=== PATIENT | male | born 1990 | race Caucasian/White ===

== ENCOUNTER 2016-05-25 10:37 | Outpatient (CLI) ==
[2015-11-15 23:54] VITALS: BMI 32.1
== END 2016-05-25 10:38 ==
LOC: AMBL 10:37
PROVIDERS: ATTEND Emergency Medicine
DX: S50.812A Abrasion of left forearm, initial encounter (principal); W45.8XXA Other foreign body or object entering through skin, initial encounter; Y92.149 Unspecified place in prison as the place of occurrence of the external cause

== ENCOUNTER 2016-07-07 11:50 | Emergency (ER) ==
[2016-07-07 12:00] VITALS: BP 139/83; TEMP 98.1; BMI 27.8
--- NOTE | 2016-07-07 13:49 | CT ---
EXAM: CT right ankle without contrast HISTORY: New injury to secondary healing fracture site COMPARISON: Radiograph 09/05/2009 TECHNIQUE: Multiple axial images of the right ankle were obtained without intravenous contrast. Im ages were reformatted in sagittal and coronal planes. FINDINGS: Bone mineralization is normal. There is healed fracture of the distal fibular metaphysis . No acute fracture identified within the ankle. There is slight asymmetric widening of the medial ankle mortise to 0.6 cm on coronal image 35 with the medial aspect of the tibiotalar joint slightly wider than the lateral aspect. This appears stable since the prior radiograph. There is spurring on both sides of the tibiotalar joint. Comminuted, mildly displaced fracture is seen off the base of the second metatarsal on sagittal imag e 58, with more subtle displaced fractures of the bases of the third and fourth metatarsals. No loc alized soft tissue abnormality detected. IMPRESSION: 1. Acute mildly displaced intra-articular fractures of the bases of the second, third and fourth me tatarsals. 2. Old healed distal fibular metaphyseal fracture with probably chronic mild tibiotalar joint widen ing, likely due to ligamentous injury. 3. Consider follow-up MRI for further evaluation.
--- NOTE | 2016-07-07 13:52 | CT ---
EXAM: CT right foot without contrast HISTORY: New right foot injury to secondary healing fracture site. Initial presentation. COMPARISON: Radiograph 09/05/2009 TECHNIQUE: Multiple axial images of the right foot were obtained without intravenous contrast. Jocy ges were reformatted in sagittal and coronal planes. FINDINGS: Bone mineralization is normal. There is healed fracture of the distal fibular metaphysis seen on the tele tech view. No acute fracture identified within the ankle. There is slight asymmetric widening of the medial ankle mortise to 0.6 cm with the medial aspect of the tibiotalar joint sligh tly wider than the lateral aspect. This appears stable since the prior radiograph. There is spurring on both sides of the tibiotalar joint. Comminuted, mildly displaced fracture is seen off the base of the second metatarsal with more subtle fractures seen off the bases of the third and fourth metatarsals No localized soft tissue abnormal ity detected. IMPRESSION: 1. Acute mildly displaced intra-articular fractures of the bases of the second, third and fourth me tatarsals. 2. Old healed distal fibular metaphyseal fracture with probably chronic mild tibiotalar joint widen ing, likely due to ligamentous injury. 3. Consider follow-up MRI for further characterization of these findings.
[2016-07-07] MEDS ORDERED: MERREM 1 GM in SODIUM CHLORIDE 100 ML IV STA (14:10)
--- NOTE | 2016-07-07 14:20 | ED.PDOC ---
General ED Provider: Dr. MARTA MORENO JR Chief Complaint: Ankle Pain/Injury Stated Complaint: kicked door at long term old anile injury now with ankle and foot pain right side Time Seen by Physician: 12:30 Mode of Arrival: Walk-In Information Source: Patient Exam Limitations: No limitations Nursing and Triage Documentation Reviewed and Agree: No Review of Systems - Review Of Systems Constitutional: Reports: No symptoms Eyes: Reports: No symptoms Ears, Nose, Mouth, Throat: Reports: No symptoms Respiratory: Reports: No symptoms Cardiac: Reports: No symptoms GI: Reports: No symptoms : Reports: No symptoms Musculoskeletal: Reports: Joint pain Skin: Reports: No symptoms Neurological: Reports: No symptoms Endocrine: Reports: No symptoms Hematologic/Lymphatic: Reports: No symptoms All Other Systems: Other Past Medical History - Past Medical History Previously Healthy: Yes Endocrine: Reports: None Cardiovascular: Reports: Hypertension Respiratory: Reports: None Hematological: Reports: None Gastrointestinal: Reports: None Genitourinary: Reports: None Neuro/Psych: Reports: Anxiety, Depression, Bipolar Disorder, Schizophrenia Musculoskeletal: Reports: None (medically stable for psych) Cancer: Reports: None Other Pertinent Past Medical History: htn depr anx bipolar schizophrenia appy - Surgical History General Surgical History: Reports: Appendectomy - Family History Family History: Reports: Unknown - Social History Smoking Status: Current every day smoker Hx Substance Use: Yes Alcohol Screening: None Physical Exam - Physical Exam Appearance: Well-appearing Pain Distress: Moderate Neck: Supple Respiratory: Airway patent Musculoskeletal: No calf tenderness (tender anteriof foot and ankle without ecchymoses), Limited ROM (right ankle), Edema (minimal) Skin: Warm, Dry, Normal color Neurological: Sensation intact, Motor intact, Reflexes intact, Cranial nerves intact, Alert, Oriented Psychiatric: Affect appropriate, Mood appropriate Critical Care Note - Critical Care Note Total Time (mins): 0 Course - Course Orders, Labs, Meds: Orders Category Date Time Status Air cast [ED SPLINT APPLICATION] .ONCE EMERGENCY 07/07/16 14:02 Active CRUTCHES [ED CRUTCHES] .ONCE EMERGENCY 07/07/16 14:[address] ANKLE RIGHT WO CONTRAST Stat RADS 07/07/16 12:[address] FOOT RIGHT WITHOUT CONTRAST Stat RADS 07/07/16 12:33 Completed Vital Signs: Temp Pulse Resp BP Pulse Ox 07/07/16 11:51 98.1 F 103 H 16 139/83 99 Departure - Departure Time of Disposition: 14:17 Disposition: HOME SELF-CARE Discharge Problem: Foot fracture, right, Metatarsal bone fracture Instructions: Foot Fracture in Adults (ED) Condition: Good Pt referred to PMD for follow-up: Yes Additional Instructions: no weight on right foot for 2 to 6 weeks elevate foot for two hours twice a day(above level of heart) ice 20 minutes three times a day orthopedic referral for fractured foot norco for pain not improved with Tylenol NO REFILLS return if increased swelling, dark bruising, loss of sensation Prescriptions: Hydrocodone Bit/Acetaminophen [[place] 5-325] 1 - 2 tab PO Q6HR PRN #20 tablet PRN Reason: pain Allergies/Adverse Reactions: Allergies sulfamethoxazole [From Bactrim] Adverse Reaction (Verified 07/07/16 11:53) THROAT SWELLS Home Medications: Ambulatory Orders Bupropion HCl [Wellbutrin] 150 mg PO BEDTIME 07/07/16 Hydrocodone Bit/Acetaminophen [[place] 5-325] 1 - 2 tab PO Q6HR PRN #20 tablet Hydroxyzine HCl 25 mg PO BEDTIME 07/07/16
== END 2016-07-07 14:41 | disposition home or self-care (01) ==
LOC: ED 11:50
DX: S92.321A Displaced fracture of second metatarsal bone, right foot, initial encounter for closed fracture (principal); S92.331A Displaced fracture of third metatarsal bone, right foot, initial encounter for closed fracture; S92.341A Displaced fracture of fourth metatarsal bone, right foot, initial encounter for closed fracture; W22.8XXA Striking against or struck by other objects, initial encounter; F17.210 Nicotine dependence, cigarettes, uncomplicated
CPT/HCPCS: 99283

== ENCOUNTER 2016-11-01 14:01 | Emergency (ER) ==
[2016-11-01 14:04] VITALS: BP 135/73; TEMP 99.6; BMI 30.7
--- NOTE | 2016-11-01 14:14 | ED.PDOC ---
General ED Provider: Dr. MIROSLAVA CROUCH Chief Complaint: Foot Pain/Injury Stated Complaint: Foot cought in cell door when door closed Time Seen by Physician: 13:05 Mode of Arrival: Walk-In Information Source: Patient, Other Exam Limitations: No limitations Nursing and Triage Documentation Reviewed and Agree: Yes Review of Systems - Review Of Systems Constitutional: Reports: No symptoms Musculoskeletal: Reports: Other (R foot pain - dorsum and lateral) Neurological: Reports: No symptoms All Other Systems: Reviewed and Negative Past Medical History - Past Medical History Previously Healthy: Yes Endocrine: Reports: None Cardiovascular: Reports: Hypertension Respiratory: Reports: None Hematological: Reports: None Gastrointestinal: Reports: None Genitourinary: Reports: None Neuro/Psych: Reports: Anxiety, Depression, Bipolar Disorder, Schizophrenia Musculoskeletal: Reports: None (medically stable for psych) Cancer: Reports: None Other Pertinent Past Medical History: htn depr anx bipolar schizophrenia appy - Surgical History General Surgical History: Reports: Appendectomy - Family History Family History: Reports: Unknown - Social History Smoking Status: Current every day smoker Hx Substance Use: Yes Alcohol Screening: None Physical Exam - Physical Exam Appearance: Well-appearing Musculoskeletal: Limited ROM (Using a crutch to help support weight; antlgic gait) Skin: Warm, Dry, Normal color Neurological: Sensation intact, Motor intact Psychiatric: Affect appropriate, Mood appropriate Interpretation - Radiology Interpretation Radiology Interpretation By: Radiologist Radiology Results: No acute changes Exam Interpreted: Other (R foot) Critical Care Note - Critical Care Note Total Time (mins): 7 Course - Course Orders, Labs, Meds: Orders Category Date Time Status FOOT, RIGHT 3 VIEWS Stat RADS 11/01/16 14:12 Completed Vital Signs: Temp Pulse Resp BP Pulse Ox 11/01/16 14:02 99.6 F 88 14 135/73 98 Departure - Departure Time of Disposition: 14:47 Disposition: HOME SELF-CARE Discharge Problem: Foot pain, right Instructions: Foot Contusion (ED) Condition: Good Pt referred to PMD for follow-up: Yes (Follow up with primary care) Additional Instructions: follow up as needed. Allergies/Adverse Reactions: Allergies sulfamethoxazole [From Bactrim] Adverse Reaction (Verified 11/01/16 14:05) THROAT SWELLS Home Medications: Ambulatory Orders Bupropion HCl [Wellbutrin] 150 mg PO DAILY 07/07/16 Trazodone HCl 100 mg PO BEDTIME 11/01/16 Disposition Discussed With: Patient
--- NOTE | 2016-11-01 14:39 | DI ---
EXAM: Views of the right foot HISTORY: Trauma TECHNIQUE: AP lateral, oblique views of the right foot were obtained. FINDINGS: No acute fractures are seen. There is anatomic alignment. The soft tissues are normal. There are no erosions. IMPRESSION: No acute fracture dislocation seen within the right foot.
== END 2016-11-01 14:52 | disposition home or self-care (01) ==
LOC: ED 14:01
DX: M79.671 Pain in right foot (principal); W23.0XXA Caught, crushed, jammed, or pinched between moving objects, initial encounter; F17.210 Nicotine dependence, cigarettes, uncomplicated
CPT/HCPCS: 99283

== ENCOUNTER 2016-11-06 23:16 | Emergency (ER) ==
[2016-11-06] MEDS ORDERED: SODIUM CHLORIDE 1,000 ML IV STA ×3 (23:28)
[2016-11-06] MEDS ORDERED: MORPHINE 2 MG/ML SYRINGE IVP STA (23:30)
[2016-11-06] MEDS ORDERED: ZOFRAN 4 MG/2 ML IVP STA (23:30)
[2016-11-06 23:37] LABS: BASOPHILS % (AUTO) 0.3 % (0.0-3.0); EOSINOPHILS % (AUTO) 0.1 % (0.0-7.0); HEMATOCRIT 46.9 % (42.0-52.0); HEMOGLOBIN 17.2 g/dl (14.0-18.0); IMMATURE GRANULOCYTE % (AUTO) 0.4 % (0.0-5.0); LYMPHOCYTES # (AUTO) 1.7 K/uL (0.60-3.4); LYMPHOCYTES % (AUTO) 12.9 (10.0-50.0); MEAN CORPUSCULAR HEMOGLOBIN 28.3 pg (27.0-31.0); MEAN CORPUSCULAR HGB CONC 36.7 (31.8-35.4); MEAN CORPUSCULAR VOLUME 77.3 fl (80.0-94.0); MONOCYTES # (AUTO) 0.9 K/uL (0.4-2.0); NEUTROPHILS # (AUTO) 10.6 K/ul (2.0-6.9); NEUTROPHILS % (AUTO) 79.3; PLATELET COUNT 405 10^3/uL (140-440); RED BLOOD COUNT 6.07 10^6/ul (4.70-6.10); WHITE BLOOD COUNT 13.31 K/ul (4.2-10.2)
[2016-11-06 23:48] VITALS: BP 123/66; TEMP 99.3; BMI 29.4
[2016-11-07 00:27] LABS: ALBUMIN/GLOBULIN RATIO 1.39; ANION GAP 26.6; BILIRUBIN,TOTAL 1.05 mg/dL (0.00-1.20); BUN/CREATININE RATIO 13.29; CALCIUM 9.9 mg/dL (8.2-10.2); CREATINE KINASE MB 2.9 ng/ml (0.0-3.6); CREATININE 3.46 mg/dL (0.60-1.10); POTASSIUM 3.6 mmol/L (3.5-5.1); TOTAL PROTEIN 8.6 g/dL (6.4-8.2)
--- NOTE | 2016-11-07 01:35 | CT ---
EXAM: CT abdomen pelvis without intravenous contrast 11/07/2016. Sagittal and coronal reformatted images obtained HISTORY: Azotemia COMPARISON: None. FINDINGS: The liver and gallbladder show no acute abnormality. The adrenal glands and kidneys show no acute abnormality. The spleen and pancreas show no acute process. There is no bowel obstruction. Unremarkable urinary bladder. No free air or free fluid. No acute osseous abnormality. IMPRESSION: 1. No acute inflammatory process identified within the abdomen or pelvis within the limitation of a noncontrast enhanced examination.
[2016-11-07 02:04] LABS: ADD URINE MICROSCOPIC YES; BACTERIA,URINE TRACE (NOT PRESENT); BILIRUBIN,URINE 2+ (NEGATIVE); KETONES,URINE 1+ (NEGATIVE); LEUKOCYTE ESTERASE ,URINE Negative (NEGATIVE); NITRITE,URINE Negative (NEGATIVE); PROTEIN,URINE 1+ (NEGATIVE); URINE, BLOOD Trace-lysed (NEGATIVE)
[2016-11-07 02:07] LABS: COCAIN SCREEN,URINE NEGATIVE (NEGATIVE)
--- NOTE | 2016-11-07 06:10 | ED.PDOC ---
General ED Provider: Dr. DION MURPHY-ER Chief Complaint: Non-specific Complaint Stated Complaint: my muscles are crmping--fiordaliza been out in the heat all day Time Seen by Physician: 23:20 Mode of Arrival: Ambulance Information Source: Patient, EMT Exam Limitations: No limitations [facility] Nursing and Triage Documentation Reviewed and Agree: Yes Miscellaneous Complaint Exam - Complex/Multi-System Complaint/Exam Onset/Duration: today Symptoms Are: Still present Episodes Lasting: Hours Initial Severity: Mild Current Severity: Moderate Location of Pain: exremities Character: cramping Associated Signs and Symptoms: Reports: Weakness, Headache, Nausea, Vomiting, Decreased oral intake. Denies: Decreased responsiveness, Confusion, Agitation, Dizziness, Syncope, Short of air, Cough, Wheezing, Hemoptysis, Chest pain, Palpitations, Edema, Diarrhea, Abdominal pain, Back pain, Hematemesis, Melena, Fever, Diaphoresis, Immunocompromised, Anticoagulation Therapy, Recent medication changes, Indwelling medical appliance maker, Prior MRSA, Prior VRE, Recent trauma, Remote trauma Recent Echo/LV Function: No Respiratory Distress: None JVD Present: No Tachypnea Present: No Stridor Present: No Abdominal Findings: Present: Normal findings Glascow Coma Scale (see protocol): 15 Meningeal Signs Positive: No Focal Weakness: Present: None Focal Sensory Loss: Present: None Gait: Unsteady Gag Reflex Present: Yes Babinski Sign: Negative Right, Negative Left Skin Findings: Present: Normal findings Joint Swelling Present: No In-Dwelling Device Present: No Differential Diagnosis: Other Quality Indicator For Non-Traumatic Chest Pain/Syncope: EKG Performed Review of Systems - Review Of Systems Constitutional: Reports: Weakness, Loss of appetite Eyes: Reports: No symptoms Ears, Nose, Mouth, Throat: Reports: No symptoms Respiratory: Reports: No symptoms Cardiac: Reports: No symptoms GI: Reports: Nausea, Vomiting : Reports: No symptoms Musculoskeletal: Reports: Muscle pain Skin: Reports: No symptoms Neurological: Reports: No symptoms Endocrine: Reports: No symptoms Hematologic/Lymphatic: Reports: No symptoms All Other Systems: Reviewed and Negative Past Medical History - Past Medical History Previously Healthy: Yes Endocrine: Reports: None Cardiovascular: Reports: Hypertension Respiratory: Reports: None Hematological: Reports: None Gastrointestinal: Reports: None Genitourinary: Reports: None Neuro/Psych: Reports: Anxiety, Depression, Bipolar Disorder, Schizophrenia Musculoskeletal: Reports: None (medically stable for psych) Cancer: Reports: None Other Pertinent Past Medical History: htn depr anx bipolar schizophrenia appy - Surgical History General Surgical History: Reports: Appendectomy - Family History Family History: Reports: Unknown - Social History Smoking Status: Current every day smoker Hx Substance Use: Yes Alcohol Screening: None Lives: With family - Immunizations Tetanus Shot up to Date: Yes Physical Exam - Physical Exam Appearance: Well-appearing, No pain distress, Well-nourished Pain Distress: Mild Eyes: JAMES ENT: Ears normal, Nose normal, Oropharynx normal Neck: Supple Respiratory: Airway patent, Breath sounds clear, Breath sounds equal, Respirations nonlabored Cardiovascular: RRR, Pulses normal, No rub, No murmur GI/: Soft Musculoskeletal: Normal strength Skin: Warm Neurological: Sensation intact Psychiatric: Affect appropriate, Mood appropriate Re-Evaluation - Re-Evaluation Time of Re-Evaluation: 03:05 Status: Improved Vital Signs Stable: Yes Pain Level: 0 Appearance: NAD Lungs: Clear Skin: Warm and Dry Neuro: Alert and Oriented X3 CV: RRR Critical Care Note - Critical Care Note Total Time (mins): 0 Course - Course Hematology/Chemistry: 11/06/16 23:35 11/06/16 23:35 Orders, Labs, Meds: Lab Review 11/06/16 11/07/16 23:35 01:50 WBC 13.31 H RBC 6.07 Hgb 17.2 Hct 46.9 MCV 77.3 L MCH 28.3 MCHC 36.7 H RDW Coeff of Madi 12.1 Plt Count 405 Immature Gran % (Auto) 0.4 Neut % (Auto) 79.3 Lymph % (Auto) 12.9 [place] % (Auto) 7.0 Eos % (Auto) 0.1 Baso % (Auto) 0.3 Immature Gran # (Auto) 0.1 Neut # 10.6 H Lymph # 1.7 [place] # 0.9 Eos # 0.0 Baso # 0.0 Sodium 137 Potassium 3.6 Chloride 96 L Carbon Dioxide 18 L Anion Gap 26.6 BUN 46 H Creatinine 3.46 H Estimated GFR (MDRD) 22.00 BUN/Creatinine Ratio 13.29 Glucose 107 H Calcium 9.9 Total Bilirubin 1.05 AST 19 ALT 11 L Alkaline Phosphatase 83 Total Creatine Kinase 860 CK-MB (CK-2) 2.9 CK-MB (CK-2) % 0.61556 Total Protein 8.6 H Albumin 5.0 Globulin 3.6 Albumin/Globulin Ratio 1.39 Urine Color Yellow Urine Clarity Slightly Urine pH 5.0 Ur Specific [place] >=1.030 Urine Protein 1+ Urine Glucose (UA) Negative Urine Ketones 1+ Urine Blood Trace-lysed Urine Nitrite Negative Urine Bilirubin 2+ Urine Urobilinogen 0.2 Ur Leukocyte Esterase Negative Urine Microscopic RBC 2-5 Ur Squamous Epith Cells 2-5 Urine Bacteria Trace Hyaline Casts 10-20 Urine Mucus Trace Urine Opiates Screen Positive Ur Oxycodone Screen Negative Urine Methadone Screen Negative Ur Propoxyphene Screen Negative Ur Barbiturates Screen Negative U Tricyclic Antidepress Negative Ur Phencyclidine Scrn Negative Ur Amphetamine Screen Positive U Methamphetamines Scrn Positive U Benzodiazepines Scrn Negative Urine Cocaine Screen Negative U Cannabinoids Screen Negative Orders Category Date Time Status EKG-(ED ONLY) Stat CARDIO 11/06/16 23:27 Completed ED IV/MEDIPORT/POWERPORT .ONCE EMERGENCY 11/06/16 23:28 Active CBC W/ AUTO DIFF Stat LAB 11/06/16 23:35 Completed COMPREHENSIVE METABOLIC PANEL Stat LAB 11/06/16 23:35 Completed CREATINE KINASE Stat LAB 11/06/16 23:35 Completed UA [URINALYSIS C & S IF INDICATED] Stat LAB 11/06/16 23:28 Completed URINE DRUG SCREEN (RAPID FOR ED) [DRUG SCREEN, URINE, LAB 11/06/16 23:29 Completed RAPID] Stat 0.9 % Sodium Chloride [Saline Flush] MEDS 11/06/16 23:28 Discontinued 1 syr IVF PRN PRN Morphine Sulfate [Morphine 2 mg/ml Syringe] MEDS 11/06/16 23:30 Discontinued 2 mg IVP ONCE STA Ondansetron HCl/Pf [Zofran 4 mg/2 ml] MEDS 11/06/16 23:30 Discontinued 4 mg IVP ONCE STA Sodium Chloride 0.9% [Sodium Chloride] 1,000 ml MEDS 11/06/16 23:28 Discontinued IV 250 mls/hr Sodium Chloride 0.9% [Sodium Chloride] 1,000 ml MEDS 11/06/16 23:28 Discontinued IV BOLUS Sodium Chloride 0.9% [Sodium Chloride] 1,000 ml MEDS 11/06/16 23:[address] ABDOMEN/PELVIS WO CONTRAST Stat RADS 11/07/16 01:02 Completed Medications Discontinued Medications Generic Name Dose Route Start Last Admin Trade Name Freq PRN Reason Stop Dose Admin Sodium Chloride 1,000 mls @ 1,000 mls/hr 11/06/16 23:28 11/06/16 23:37 Sodium Chloride IV 11/07/16 00:27 1,000 mls/hr BOLUS STA Administration Sodium Chloride 1,000 mls @ 1,000 mls/hr 11/06/16 23:28 11/07/16 00:59 Sodium Chloride IV 11/07/16 00:27 1,000 mls/hr BOLUS STA Administration Sodium Chloride 1,000 mls @ 250 mls/hr 11/06/16 23:28 11/07/16 01:50 Sodium Chloride IV 11/07/16 03:27 250 mls/hr .Q4H STA Administration Morphine Sulfate 2 mg 11/06/16 23:30 11/07/16 00:46 Morphine 2 Mg/Ml Syringe IVP 11/06/16 23:31 2 mg ONCE STA Administration Ondansetron HCl 4 mg 11/06/16 23:30 11/07/16 00:47 Zofran 4 Mg/2 Ml IVP 11/06/16 23:31 4 mg ONCE STA Administration Sodium Chloride 1 syr 11/06/16 23:28 11/07/16 00:47 Saline Flush IVF 1 syr PRN PRN Administration To flush IV mr basurto needed admission for iv fluids for tx of heat exhaustion, dehydation and louie---he refused and wanted to leave [facility]--he was alert and oriented--i made him aware of further injury including but he still refused admission so he left [facility]a Vital Signs: Temp Pulse Resp BP Pulse Ox 11/06/16 23:19 99.3 F 99 H 18 123/66 98 Departure - Departure Time of Disposition: 03:15 Disposition: AMA Discharge Problem: Dehydration, Acute kidney injury Heat exhaustion Qualifiers: Encounter type: initial encounter Qualifier Code: (T67.5XXA) Heat exhaustion, unspecified, initial encounter Instructions: Heat Exhaustion (ED) Condition: Stable Pt referred to PMD for follow-up: Yes Additional Instructions: YOU ARE SIGNING OUT AGAINST MEDICAL ADVICE. FOLLOW UP WITH PCP REGARDING REPEAT LAB WORK. Allergies/Adverse Reactions: Allergies sulfamethoxazole [From Bactrim] Adverse Reaction (Verified 11/06/16 23:25) THROAT SWELLS Home Medications: Ambulatory Orders Bupropion HCl [Wellbutrin] 150 mg PO DAILY 07/07/16 Trazodone HCl 100 mg PO BEDTIME 11/01/16 Disposition Discussed With: Patient
== END 2016-11-07 03:40 | disposition left against medical advice (07) ==
LOC: ED 23:16
DX: T67.5XXA Heat exhaustion, unspecified, initial encounter (principal); E86.0 Dehydration; N17.9 Acute kidney failure, unspecified; R25.2 Cramp and spasm; F17.210 Nicotine dependence, cigarettes, uncomplicated
CPT/HCPCS: 36415; 80053; 80306; 81001; 82550; 82553; 85025; 93005; 93010; 96360; 96361; 96374; 96375; 99284

== ENCOUNTER 2016-11-14 22:46 | Observation (INO) ==
[2016-11-14 22:47] VITALS: BMI 29.4
[2016-11-14] MEDS ORDERED: SODIUM CHLORIDE 1,000 ML IV STA ×2 (23:10→23:57)
[2016-11-14 23:30] LABS: BASOPHILS # (AUTO) 0.1 K/uL (0-0.2); BASOPHILS % (AUTO) 0.7 % (0.0-3.0); EOSINOPHILS # (AUTO) 0.1 K/ul (0.0-0.7); EOSINOPHILS % (AUTO) 1.6 % (0.0-7.0); HEMATOCRIT 38.4 % (42.0-52.0); HEMOGLOBIN 13.5 g/dl (14.0-18.0); IMMATURE GRANULOCYTE % (AUTO) 0.3 % (0.0-5.0); LYMPHOCYTES # (AUTO) 2.3 K/uL (0.60-3.4); LYMPHOCYTES % (AUTO) 29.9 (10.0-50.0); MEAN CORPUSCULAR HEMOGLOBIN 28.1 pg (27.0-31.0); MEAN CORPUSCULAR HGB CONC 35.2 (31.8-35.4); MONOCYTES # (AUTO) 0.7 K/uL (0.4-2.0); MONOCYTES % (AUTO) 8.7 (0-10); NEUTROPHILS # (AUTO) 4.5 K/ul (2.0-6.9); NEUTROPHILS % (AUTO) 58.8; PLATELET COUNT 357 10^3/uL (140-440); WHITE BLOOD COUNT 7.63 K/ul (4.2-10.2)
--- NOTE | 2016-11-14 23:36 | CT ---
EXAM: CT scan brain without contrast HISTORY: Altered mental status COMPARISON: CT scan brain 09/05/2009 FINDINGS: Contiguous axial images obtained from the skull base to the convexities without contrast utilizing 5-mm collimation. Sagittal and coronal reconstructions were imaged and reviewed. The vent ricles and CSF spaces are within normal limits. There are no acute intracranial findings. Minimal mucoperiosteal thickening is seen in the bilateral maxillary sinuses. The calvarium is intact. IMPRESSION: No acute intracranial findings. Benign sinus disease
[2016-11-14] MEDS ORDERED: ATIVAN IVP PRN (23:56)
[2016-11-14] MEDS ORDERED: TORADOL IVP STA (23:56)
[2016-11-15 00:02] LABS: ACETAMINOPHEN < 3 ug/ml (10-30); ALANINE AMINOTRANSFERASE 15 U/L (12-78); ALBUMIN 3.8 g/dL (3.4-5.0); ALBUMIN/GLOBULIN RATIO 1.58; ALKALINE PHOSPHATASE 69 U/L (50-136); ASPARTATE AMINO TRANSFERASE 23 U/L (15-37); BILIRUBIN,TOTAL 0.42 mg/dL (0.00-1.20); BLOOD UREA NITROGEN 15 mg/dL (7-18); BUN/CREATININE RATIO 18.07; CALCIUM 9.3 mg/dL (8.2-10.2); CARBON DIOXIDE 25 mmol/L (21-32); CHLORIDE 107 mmol/L (98-107); CREATINE KINASE 461 U/L; CREATININE 0.83 mg/dL (0.60-1.10); GLUCOSE 86 mg/dL (70-100); SALICYLATE < 5.0 mg/dL (2.8-20.0); SODIUM 140 mmol/L (136-145); TOTAL PROTEIN 6.2 g/dL (6.4-8.2)
[2016-11-15 00:03] LABS: CREATINE KINASE MB 3.2 ng/ml (0.0-3.6)
--- NOTE | 2016-11-15 06:15 | ED.PDOC ---
General ED Provider: Dr. DION MURPHY-ER Chief Complaint: Hypertension Stated Complaint: brought from long term--elevated bp Time Seen by Physician: 22:50 Mode of Arrival: Walk-In Information Source: Patient Exam Limitations: No limitations Primary Care Provider: [facility] Nursing and Triage Documentation Reviewed and Agree: Yes Miscellaneous Complaint Exam - Physical Examination Complaint/Exam Onset/Duration: unknown Symptoms Are: Still present Timing: Constant Initial Severity: Mild Current Severity: Moderate Review of Systems - Review Of Systems Constitutional: Reports: No symptoms Eyes: Reports: No symptoms Ears, Nose, Mouth, Throat: Reports: No symptoms Respiratory: Reports: No symptoms Cardiac: Reports: No symptoms GI: Reports: No symptoms : Reports: No symptoms Musculoskeletal: Reports: No symptoms Skin: Reports: No symptoms Neurological: Reports: Cognitive dysfunction Endocrine: Reports: No symptoms Hematologic/Lymphatic: Reports: No symptoms All Other Systems: Reviewed and Negative Past Medical History - Past Medical History Previously Healthy: Yes Endocrine: Reports: None Cardiovascular: Reports: Hypertension Respiratory: Reports: None Hematological: Reports: None Gastrointestinal: Reports: None Genitourinary: Reports: None Neuro/Psych: Reports: Anxiety, Depression, Bipolar Disorder, Schizophrenia Musculoskeletal: Reports: None (medically stable for psych) Cancer: Reports: None Other Pertinent Past Medical History: htn depr anx bipolar schizophrenia appy - Surgical History General Surgical History: Reports: Appendectomy - Family History Family History: Reports: Unknown - Social History Smoking Status: Current every day smoker Hx Substance Use: Yes Alcohol Screening: None Lives: With family - Immunizations Tetanus Shot up to Date: Yes Physical Exam - Physical Exam Appearance: Well-appearing, No pain distress, Well-nourished Eyes: JAMES, EOMI, Conjunctiva clear ENT: Ears normal, Nose normal, Oropharynx normal Neck: Supple Respiratory: Airway patent, Breath sounds clear, Breath sounds equal, Respirations nonlabored Cardiovascular: RRR, Pulses normal, No rub, No murmur GI/: Soft, Nontender, No masses, Bowel sounds normal, No Organomegaly Musculoskeletal: Normal strength, ROM intact, No edema, No calf tenderness Skin: Warm, Dry, Normal color Neurological: Alert, Disoriented Psychiatric: Affect appropriate, Mood appropriate Interpretation - Radiology Interpretation Radiology Interpretation By: Radiologist Radiology Results: Negative Exam Interpreted: CT Scan Critical Care Note - Critical Care Note Total Time (mins): 15 Course - Course Hematology/Chemistry: 11/14/16 23:27 11/14/16 23:27 Orders, Labs, Meds: Lab Review 11/14/16 23:27 WBC 7.63 RBC 4.80 Hgb 13.5 L Hct 38.4 L MCV 80.0 MCH 28.1 MCHC 35.2 RDW Coeff of Madi 12.2 Plt Count 357 Immature Gran % (Auto) 0.3 Neut % (Auto) 58.8 Lymph % (Auto) 29.9 Loup % (Auto) 8.7 Eos % (Auto) 1.6 Baso % (Auto) 0.7 Immature Gran # (Auto) 0.0 Neut # 4.5 Lymph # 2.3 Loup # 0.7 Eos # 0.1 Baso # 0.1 Sodium 140 Potassium 4.0 Chloride 107 Carbon Dioxide 25 Anion Gap 12.0 BUN 15 Creatinine 0.83 Estimated GFR (MDRD) 113.00 BUN/Creatinine Ratio 18.07 Glucose 86 Calcium 9.3 Total Bilirubin 0.42 AST 23 ALT 15 Alkaline Phosphatase 69 Total Creatine Kinase 461 CK-MB (CK-2) 3.2 CK-MB (CK-2) % 0.65028 Troponin I < 0.0100 Total Protein 6.2 L Albumin 3.8 Globulin 2.4 Albumin/Globulin Ratio 1.58 Salicylate Level mg/dL < 5.0 Acetaminophen < 3 L Orders Category Date Time Status EKG-(ED ONLY) Stat CARDIO 11/14/16 23:09 Completed Tape Duplicator [ED PARKING [employer] SUPERVISOR APPLIED] .ONCE EMERGENCY 11/14/16 23:09 Active ED IV/MEDIPORT/POWERPORT .ONCE EMERGENCY 11/14/16 23:10 Active ACETAMINOPHEN Stat LAB 11/14/16 23:27 Completed CBC W/ AUTO DIFF Stat LAB 11/14/16 23:27 Completed COMPREHENSIVE METABOLIC PANEL Stat LAB 11/14/16 23:27 Completed CREATINE KINASE Stat LAB 11/14/16 23:27 Completed DRUG SCREEN, URINE, RAPID Stat LAB 11/14/16 23:10 Uncollected SALICYLATE Stat LAB 11/14/16 23:27 Completed TROPONIN I Stat LAB 11/14/16 23:27 Completed URINALYSIS C & S IF INDICATED Stat LAB 11/14/16 23:09 Uncollected 0.9 % Sodium Chloride [Saline Flush] MEDS 11/14/16 23:10 Ordered 1 syr IVF PRN PRN Ketorolac Tromethamine [Toradol] MEDS 11/14/16 23:56 Discontinued 30 mg IVP ONCE STA Lorazepam Inj [Ativan] MEDS 11/14/16 23:56 Ordered 1 mg IVP Q1HR PRN Sodium Chloride 0.9% [Sodium Chloride] 1,000 ml MEDS 11/14/16 23:57 Discontinued IV 250 mls/hr Sodium Chloride 0.9% [Sodium Chloride] 1,000 ml MEDS 11/14/16 23:10 Discontinued IV 30 mls/hr CT HEAD W/O CONTRAST Stat RADS 11/14/16 23:16 Completed Medications Generic Name Dose Route Start Last Admin Trade Name Freq PRN Reason Stop Dose Admin Lorazepam 1 mg 11/14/16 23:56 Ativan IVP Q1HR PRN Agitation Sodium Chloride 1 syr 11/14/16 23:10 11/14/16 23:40 Saline Flush IVF 1 syr PRN PRN Administration To flush IV Discontinued Medications Generic Name Dose Route Start Last Admin Trade Name Freq PRN Reason Stop Dose Admin Sodium Chloride 1,000 mls @ 30 mls/hr 11/14/16 23:10 11/14/16 23:38 Sodium Chloride IV 11/16/16 08:29 30 mls/hr .[id number] STA Administration Sodium Chloride 1,000 mls @ 250 mls/hr 11/14/16 23:57 Sodium Chloride IV 11/15/16 03:09 .Q4H STA Ketorolac Tromethamine 30 mg 11/14/16 23:56 Toradol IVP 11/14/16 23:57 ONCE STA Vital Signs: Temp Pulse Resp BP Pulse Ox 11/14/16 22:48 98.8 F 82 20 126/80 98 Departure - Departure Time of Disposition: 06:16 Disposition: PLACED OBSERVATION Discharge Problem: Elevated BP without diagnosis of hypertension Change in mental state Qualifiers: Altered mental status type: disorientation Qualifier Code: (R41.0) Disorientation, unspecified Instructions: Altered Mental Status (ED) Condition: Good Pt referred to PMD for follow-up: Yes Allergies/Adverse Reactions: Allergies sulfamethoxazole [From Bactrim] Adverse Reaction (Verified 11/14/16 22:53) THROAT SWELLS Home Medications: Ambulatory Orders Bupropion HCl [Wellbutrin] 150 mg PO DAILY 07/07/16 Trazodone HCl 100 mg PO BEDTIME 11/01/16 Disposition Discussed With: Patient
[2016-11-15] MEDS ORDERED: NON-FORMULARY MEDICATION (Bupropion Hcl 150 MG) PO SCH (09:00)
[2016-11-15] MEDS: SODIUM CHLORIDE 0.9%-KCL 20 MEQ 1,000 ML IV SCH (11:38)
[2016-11-15 18:33] LABS: BILIRUBIN,URINE Negative (NEGATIVE); KETONES,URINE Negative (NEGATIVE); LEUKOCYTE ESTERASE ,URINE Negative (NEGATIVE); NITRITE,URINE Negative (NEGATIVE); PH,URINE 6.5 (5-9); PROTEIN,URINE Negative (NEGATIVE); URINE, BLOOD Negative (NEGATIVE)
[2016-11-15 18:37] LABS: ADD URINE MICROSCOPIC NO
[2016-11-15 18:49] LABS: COCAIN SCREEN,URINE NEGATIVE (NEGATIVE)
[2016-11-15] MEDS ORDERED: DESYREL PO SCH (21:00)
[2016-11-15] MEDS ORDERED: NON-FORMULARY MEDICATION (Trazodone Hcl [Trazodone Hcl] 100 MG) PO SCH ×22 (21:00)
[2016-11-16] MEDS: SODIUM CHLORIDE 0.9%-KCL 20 MEQ 1,000 ML IV SCH (01:26)
[2016-11-16 04:39] LABS: BASOPHILS % (AUTO) 0.8 % (0.0-3.0); EOSINOPHILS # (AUTO) 0.2 K/ul (0.0-0.7); EOSINOPHILS % (AUTO) 3.5 % (0.0-7.0); HEMATOCRIT 37.4 % (42.0-52.0); HEMOGLOBIN 12.6 g/dl (14.0-18.0); IMMATURE GRANULOCYTE % (AUTO) 0.4 % (0.0-5.0); LYMPHOCYTES # (AUTO) 2.7 K/uL (0.60-3.4); LYMPHOCYTES % (AUTO) 52.4 (10.0-50.0); MEAN CORPUSCULAR HEMOGLOBIN 28.1 pg (27.0-31.0); MEAN CORPUSCULAR HGB CONC 33.7 (31.8-35.4); MEAN CORPUSCULAR VOLUME 83.5 fl (80.0-94.0); MONOCYTES # (AUTO) 0.4 K/uL (0.4-2.0); MONOCYTES % (AUTO) 8.3 (0-10); NEUTROPHILS # (AUTO) 1.8 K/ul (2.0-6.9); NEUTROPHILS % (AUTO) 34.6; PLATELET COUNT 313 10^3/uL (140-440); RED BLOOD COUNT 4.48 10^6/ul (4.70-6.10); WHITE BLOOD COUNT 5.19 K/ul (4.2-10.2)
[2016-11-16 05:04] LABS: ALBUMIN 3.1 g/dL (3.4-5.0); ALBUMIN/GLOBULIN RATIO 1.19; ANION GAP 11.3; BILIRUBIN,TOTAL 0.15 mg/dL (0.00-1.20); BUN/CREATININE RATIO 15.27; CALCIUM 8.6 mg/dL (8.2-10.2); CREATININE 0.72 mg/dL (0.60-1.10); POTASSIUM 4.3 mmol/L (3.5-5.1); TOTAL PROTEIN 5.7 g/dL (6.4-8.2)
[2016-11-16] MEDS ORDERED: WELLBUTRIN SR PO SCH (09:00)
[2016-11-16 09:41] VITALS: BP 110/65; TEMP 98
--- NOTE | 2016-11-17 08:48 | SSS ---
PRINCIPAL DIAGNOSIS: 1. Change in mental status 2. Substance abuse DISPOSITION: The patient left AMA DISCUSSION: This is a 26 year old gentleman with a history of substance abuse who was brought in by the police department for elevated blood pressure. Apparently he was in custody and I guess screening exam he thought to have elevated blood pressure and he was brought out for evaluation. He was found to be confused. somulant and irritable. He does have a history fo substance abuse and because his mental status changes we performed a CT scan of the head which is negative and we are waiting for a urinalysis however he was unable pee therefore he was admitted to ER observation for further observation. MEDICATIONS: Wellbutrin Trazodone ALLERGIES: Sulfa PAST MEDICAL HISTORY: History of depression Anxiety Bipolar disorder Schizophrenia SURGICAL HISTORY: Appendectomy SOCIAL HISTORY: He is a one pack per day smoker, denies any alcohol but does admit to using illicit substances. FAMILY HISTORY: Review and thought not to be pertinent to discussion. REVIEW OF SYSTEMS: No headaches, visual changes, tinnitus, chest pain, shortness of breath, hemoptysis, abdominal pain, blood in the stool, urinary symptoms or seizures. PHYSICAL EXAMINATION: VITAL SIGNS: Temperature 96, pulse 53, respiratory rate 18 and blood pressure 110/70. HEENT: Pupils are round. NECK: Supple. CHEST: Clear. CARDIOVASCULAR: Regular rate and rhythm. ABDOMEN: Soft, nontender. EXTREMITIES: Distal extremities without cyanosis or edema. CLINICAL COURSE: We observed in the emergency department for several hours and he was unable to pee and we extended his observation to the medical floor. While on the floor he did provide a urine specimen which was positive for amphetamines as well as cannabis. His mental status improved and at this point he began to tolerate regular diet. At this point he decided to leave the hospital and the left the hospital against medical advise. KAYLA
== END 2016-11-16 14:35 | disposition left against medical advice (07) ==
LOC: ED 22:46 → SCU 11-15 09:02 → MEDSURG B 11-15 20:18
PROVIDERS: ADMIT Family Medicine; ATTEND Family Medicine
DX: R41.82 Altered mental status, unspecified (principal); F15.90 Other stimulant use, unspecified, uncomplicated; F12.90 Cannabis use, unspecified, uncomplicated; R03.0 Elevated blood-pressure reading, without diagnosis of hypertension; R41.0 Disorientation, unspecified; F17.210 Nicotine dependence, cigarettes, uncomplicated; Z79.899 Other long term (current) drug therapy
CPT/HCPCS: 36415; 80053; 80306; 80307; 81001; 82550; 82553; 84484; 85025; 93005; 93010; 99284

== ENCOUNTER 2018-01-14 17:59 | Emergency (ER) | payer OTHER ==
[2018-01-14 18:03] VITALS: BP 131/87; TEMP 99.3; BMI 34.4
--- NOTE | 2018-01-14 18:22 | ED.PDOC ---
General ED Provider: Dr. DION COHN Chief Complaint: Hand Pain/Injury Stated Complaint: Used Rt Hand to strike door out of anger. States wanted to see nurse over complaints of rash about torso. Complains of pain and swelling over the 3rd-4th Rt MCP joint. No deformity noted. Actively moving all digits X 5 rt hand. Not tendency to keep 5th PIP in semiflexed position-no deformity redness , swelling or pain with movement Time Seen by Physician: 18:15 Mode of Arrival: Walk-In Information Source: Patient Exam Limitations: No limitations Primary Care Provider: JACEY DAY Nursing and Triage Documentation Reviewed and Agree: Yes Does patient meet sepsis criteria?: No System Inflammatory Response Syndrome: Not Applicable Sepsis Protocol: For patient's 13 years and over: Temp is 96.8 and below OR 101 and greater Pulse >90 BPM Resp >20/minute Acutely Altered Mental Status Are patient's symptoms suggestive of a new infection, such as: -Pneumonia -Skin, Soft Tissue -Endocarditis -UTI -Bone, Joint Infection -Implantable Device -Acute Abdominal Infection -Wound Infection -Meningitis -Blood Stream Catheter Infection -Unknown Musculoskeletal Complaint Exam - Hand/Wrist Complaint/Exam Location of Pain: Reports: Hand, Digit #3, Digit #4, Digit #5 Mechanism of Injury: Reports: Trauma Onset/Duration: earlier today Symptoms Are: Still present Onset of Pain: Reports: Immediate Initial Severity: Moderate Current Severity: Moderate Location: Reports: Diffuse Character: Reports: Sharp, Aching Alleviating: Reports: None Aggravating: Reports: Movement Associated Signs and Symptoms: Reports: Swelling (deformity 4th MCP joint). Denies: Redness, Bruising, Fever, Weakness, Numbness, Tingling Related History: Denies: Similar episode Dominant Hand: Right Related Surgical History: Reports: None Hand/Wrist Findings: Present: Swelling Tenderness: Present: Metacarpal, Phalanx Compartment Syndrome Risk Factors: Present: Pain Differential Diagnoses: Contusion, Sprain, Other (Fracture) Review of Systems - Review Of Systems Constitutional: Reports: No symptoms Eyes: Reports: No symptoms Ears, Nose, Mouth, Throat: Reports: No symptoms Respiratory: Reports: No symptoms Cardiac: Reports: No symptoms GI: Reports: No symptoms : Reports: No symptoms Musculoskeletal: Reports: No symptoms, Joint pain, Joint swelling Skin: Reports: No symptoms Neurological: Reports: No symptoms Endocrine: Reports: No symptoms Hematologic/Lymphatic: Reports: No symptoms All Other Systems: Reviewed and Negative Past Medical History - Past Medical History Previously Healthy: Yes Endocrine: Reports: None Cardiovascular: Reports: Hypertension Respiratory: Reports: None Hematological: Reports: None Gastrointestinal: Reports: None Genitourinary: Reports: None Neuro/Psych: Reports: Anxiety, Depression, Bipolar Disorder, Schizophrenia Musculoskeletal: Reports: None (medically stable for psych) Cancer: Reports: None Other Pertinent Past Medical History: htn depr anx bipolar schizophrenia appy - Surgical History General Surgical History: Reports: Appendectomy - Family History Family History: Reports: Unknown - Social History Smoking Status: Current some day smoker Hx Substance Use: Yes Alcohol Screening: None Physical Exam - Physical Exam Appearance: Well-appearing, Obese Ill-appearing: None Pain Distress: Mild Eyes: JAMES, EOMI, Conjunctiva clear ENT: Ears normal, Nose normal, Oropharynx normal Neck: Supple Respiratory: Airway patent, Breath sounds clear, Breath sounds equal, Respirations nonlabored Cardiovascular: RRR, Pulses normal, No rub, No murmur GI/: Soft, Nontender, No masses, Bowel sounds normal, No Organomegaly Musculoskeletal: Normal strength, ROM intact (Edema over dorsum of Rt Hand. Active movement) Skin: Warm (Rash about posterior shoulder and arm-open lesion without drainage. scattered angelina reticular rash posterior -ant rt shoulder) Interpretation - Radiology Interpretation Radiology Interpretation By: Radiologist Exam Interpreted: Other (neg xray for fracture or dislocation / 5th phalynx in flexion without fracture or dislocation noted) Critical Care Note - Critical Care Note Total Time (mins): 0 Course - Course Orders, Labs, Meds: Orders Category Date Time Status HAND, RIGHT 3 VIEWS Stat RADS 01/14/18 18:30 Completed Vital Signs: Temp Pulse Resp BP Pulse Ox 01/14/18 17:59 99.3 F 93 H 20 131/87 97 Departure - Departure Time of Disposition: 19:30 Disposition: TSF OTHER Discharge Problem: Contusion of right hand including fingers Instructions: Contusion in Adults (ED), Hematoma (ED) Condition: Good Pt referred to PMD for follow-up: Yes (Residential Physician) IPMP verified?: No Additional Instructions: Wear splint May have tylenol or ibuprofen 600mg 4 times daily for pain Ice and Elevate See Medical provider at [facility] next week Arrange follow up care orthopedics Allergies/Adverse Reactions: Allergies Penicillins Adverse Reaction (Verified 01/14/18 18:04) sulfamethoxazole [From Bactrim] Adverse Reaction (Verified 01/14/18 18:04) THROAT SWELLS Home Medications: Ambulatory Orders Bupropion HCl [Wellbutrin] 150 mg PO DAILY 07/07/16 Amitriptyline HCl [Elavil] 50 mg PO DAILY 01/14/18 Clonidine HCl [Clonidine HCl ER] 0.1 mg PO BEDTIME 01/14/18 Disposition Discussed With: Patient, Other (Residential Staff)
--- NOTE | 2018-01-14 18:50 | DI ---
EXAM: Right hand three view. Three view. HISTORY: Pain. Injury. COMPARISON: None. FINDINGS: AP, lateral and oblique views of the right hand. There are no acute or healing fractures. There is flexion at the proximal interphalangeal joint of the fifth digit. No definite dislocation is seen. There are no lytic or blastic lesions. Soft tissues are normal. Bone mineralization is nor mal. There are no significant degenerative changes. IMPRESSION: Flexion deformity of the fifth digit. There are no fractures. Ligamentous injury cannot be excluded.
== END 2018-01-14 19:44 | disposition short-term general hospital (02) ==
LOC: ED 17:59
DX: S60.221A Contusion of right hand, initial encounter (principal); S60.00XA Contusion of unspecified finger without damage to nail, initial encounter; R21 Rash and other nonspecific skin eruption; W22.8XXA Striking against or struck by other objects, initial encounter; F17.210 Nicotine dependence, cigarettes, uncomplicated
CPT/HCPCS: 99282